=== PATIENT | male | born 1975 | race Caucasian/White ===

== ENCOUNTER 2017-12-31 07:11 | Day surgery (SDC) | payer SELFPAY ==
[2017-12-31] MEDS ORDERED: Lactated Ringers 1,000 ML IV SCH (07:45)
[2017-12-31] MEDS ORDERED: fentaNYL 100 MCG/2 ML SDV ONE (08:01)
[2017-12-31] MEDS ORDERED: Propofol 200 MG/20 ML SDV ONE ×2 (08:01→08:56)
[2017-12-31] MEDS ORDERED: Midazolam 1 MG/ML 2 ML SDV ONE (08:01)
--- NOTE | 2017-12-31 09:37 | OR ---
DATE OF PROCEDURE: 12/31/2017 PREOPERATIVE DIAGNOSIS: Blood in stool. POSTOPERATIVE DIAGNOSIS: Blood in stool, etiology unknown. Unremarkable colonoscopy. PROCEDURE: Colonoscopy to the cecum. ANESTHESIA: IV anesthesia with monitored anesthesia care. INDICATION: This 42-year-old white male is referred for a colonoscopy because of blood in his stool. He denies a familial history of colon cancer. I counseled him for the procedure including risks and alternatives, and he gave his informed consent to proceed. DESCRIPTION OF PROCEDURE: The patient was placed in the left lateral decubitus position. IV anesthesia was administered by the Anesthesia Service. Time-out was held. A rectal exam was performed, which was unremarkable. A flexible video Olympus colonoscope was introduced through his anus, up his rectum and out his colon, all the way to the cecum. Once the cecum was reached, the scope was slowly withdrawn examining the mucosa throughout. No mucosal abnormalities were noted. The scope was retroflexed in the rectum with the distal rectum appearing unremarkable. The scope was straightened and removed. He tolerated the procedure well. Art Rios MD /[id number]
== END 2017-12-31 11:10 | disposition home or self-care (01) ==
LOC: JP.SDS 07:11
PROVIDERS: ATTEND Surgery
DX: K92.1 Melena (principal)
CPT/HCPCS: J2250; J2704; J3010; J7120